=== PATIENT | male | born 1975 | race Caucasian/White ===

== ENCOUNTER 2018-05-08 08:40 | Day surgery (SDC) | payer BC ==
[~2018-05-08] VITALS: Ht 180.3 cm; Wt 77.1 kg
--- NOTE | ~2018-05-08 | OP ---
PATIENT NAME: BERNICE BERNAL MEDICAL RECORD: [id number] :71 LOCATION:[facility] ADMISSION DATE: SURGEON: KAROLINA NOBLE DO DATE OF OPERATION: 05/08/2018 PROCEDURES PERFORMED: Right shoulder arthroscopy with subacromial decompression, open subscapularis and supraspinatus, rotator cuff tendon repairs with biceps tenodesis. Subscapularis repair was done with a graft. PREOPERATIVE DIAGNOSES: Right shoulder complete tear of the supraspinatus and subscapularis as well as a medial subluxation of the biceps tendon. POSTOPERATIVE DIAGNOSES: Right shoulder complete tear of the supraspinatus and subscapularis as well as a medial subluxation of the biceps tendon. INDICATIONS: Mr. Simmons is a 43-year-old male who presented to my office after falling sometime in last winter. Had an MRI done in December of 2017 that showed the tears of the supraspinatus and the subscapularis. These were seen on the MRI. He want to have them fixed. When I saw him in my office, he is tired of the pain and not be able to reach anything above his head or have any strength whatsoever. I told him that I would do my best. The fact that it happened is a chronic injury and that the tendons have been retracted so far, I would attempt to repair them and help the best we could. He was okay with that plan knowing that it would be more difficult recovery and chance of it not doing well, but he wanted to try to get the repair done, I told him I would do that. He is understanding of the risks and benefits of procedure and consented to it. DESCRIPTION OF PROCEDURE: The patient was seen in the preoperative area and given a block by anesthesia. He was then taken to the operative suite, laid in supine position, given a general anesthetic and LMA was placed. The right shoulder was prepped and draped in sterile fashion. Once he was prepped and draped, a timeout was performed. Everyone was in agreement with the correct side, site and patient. After this was done, the shoulder had been prepped and draped and a timeout had been performed, a 60 cc of normal saline were injected into the shoulder joint through the posterior portal. A posterior portal was then established with an 11-blade scalpel. A trocar was then placed into the shoulder joint and the camera was placed in the shoulder joint seeing immediately the medial subluxation of the bicep tendon as well as the tear of the supraspinatus and part of the infraspinatus. The subscapularis appeared to be torn at the superior, two-thirds of it through the scope and then a subacromial decompression was done after establishing a lateral portal with an 18-gauge spinal needle and 11-blade scalpel. At that time it was determined that we would open the shoulder, the deltopectoral interval as previously discussed with the patient and this was done with a 15 blade scalpel. Careful dissection was made down to the deltopectoral interval taking the cephalic vein laterally, exposing the shoulder itself and then through the clavipectoral fascia. The subscapularis tendon was then freed up and grasped, and seemed to be mobile as well as the supraspinatus tendon. Then bur was used to get bleeding bone on the lesser tubercle and at that time it was decided to do the biceps tenodesis. The biceps was cut with scissors and grabbed with an Allis and then whipstitched and a button was placed and it was through the suture that had been whipstitched and a single hole was drilled and just distal to the bicipital groove and the biceps tendon was cinched down and tied and then a free needle was taken with a suture and went back through the tendon and tied it down to that as well. Then, the subscapularis tendon was freed some more. Stay OPERATIVE REPORT [id number] BERNICE BERNAL sutures were put in place and the arm was brought into 30 degrees of external rotation and 2 anchors were used with SpeedBridge FiberTape and the bites were taken into the subscapularis tendon and then through the graft in hopes that it would strengthen the repair. The graft was then cinched down onto the tendon itself and then tied down to the tendon with 2 extra suture limbs of suture with the anchor. The tendon was then reduced to the lesser tubercle and then the lateral row was then put in with a very good repair with graft intact. Attention was then drawn to the supraspinatus, it was quite retracted. It was also freed up of adhesions and was reduced to the footprint with somewhat ease abducting the shoulder too. SpeedBridge FiberTapes were then used at that time, anchors were put in, one anterior and one posterior, just at the articular margin after the surface had been roughed up with a bur to cause bleeding edges. Then, Scorpion was used to go through the tendon and with all the sutures then tied down and then the lateral row was placed. The repair was seen to be very strong and the tendon was in good position. Once the lateral rows were then placed, no dog ears were seen and the wound was then thoroughly irrigated. The repair was again checked, both by feel and by vision with internal and external rotation, abduction and the tendon stayed in the place, did not tear. The irrigation was then done again and the deltopectoral interval on the skin was closed at that time with 2-0 Vicryl in inverted interrupted fashion and 4-0 Monocryl was run in the skin and Prineo glue was used on the skin. The deltopectoral incision and the 2 portal sites, the lateral and posterior portal, closed with 4-0 Monocryl in inverted interrupted suture. After this was done, the shoulder was cleaned and Adaptic, 4 x 4s and ABD were placed over the shoulder and Medipore tape was placed on. The patient was then awakened, put in a sling and taken to recovery in stable condition. Blood loss was approximately 100 mL. COMPLICATIONS: None. TRANSINT:[id number] Voice Confirmation ID: [id number] DOCUMENT ID: [id number] KAROLINA NOBLE DO at 0834 CC: [id number] DICTATION DATE: 05/08/18 1604 TECHNICAL REPORT WRITER: 05/08/18 1738 [facility] 05/08/18 [place] [id number]
[~2018-05-08 08:40] MED LIST: BUPRENORPHINE HC8 MG SL; CELEBREX200 MG PO; CIALIS10 MG PO; HYDROCODONE-APA1 TAB PO; KLONOPIN0.5 MG PO; PERCOCET 10/3251 TA1 PO; ROBAXIN-750750 MG PO; TESTOSTERON200 MG/ML IM; [UNRECOGNIZED DRUG - OTHER]
[2018-05-08 08:53] VITALS: BP 124/75; Ht 180.3 cm; Wt 77.1 kg
[2018-05-08] MEDS ORDERED: PERCOCET 10/3251 TA1 PO (15:51)
[2018-05-08] MEDS ORDERED: KEFLEX500 MG PO (15:52)
[2018-05-08] MEDS ORDERED: VISTARIL50 MG PO (15:52)
== END 2018-05-08 18:00 | disposition home or self-care (01) ==
LOC: D.OPS 08:40 → D.PAN 12:30 → D.OPS 12:30
DX: M75.121 Complete rotator cuff tear or rupture of right shoulder, not specified as traumatic (principal); M75.41 Impingement syndrome of right shoulder; S46.211A Strain of muscle, fascia and tendon of other parts of biceps, right arm, initial encounter; Z01.812 Encounter for preprocedural laboratory examination